=== PATIENT | female | born 1980 | race American Indian/Alaskan Native ===

== ENCOUNTER 2018-12-15 15:13 | Emergency (ER) | payer SELFPAY ==
--- NOTE | 2018-12-15 15:33 | Event Note ---
ED Screening Note ED Screening Note: pt presents for SPEARS that began yesterday states she has SOB and left sided CP states it feels a dull ache no N/V states her BP is elevated, takes amlodipine and hydrochlorothiazide, took them both today denies any other PMHx states she has had these sx before when her pressure was high LNMP december 01 +smoker +occ drinker no drug use This initial assessment/diagnostic orders/clinical plan/treatment(s) is/are subject to change based on patients health status, clinical progression and re- assessment by fellow clinical providers in the ED. Further treatment and workup at subsequent clinical providers discretion. Patient/guardian urged not to elope from the ED as their condition may be serious if not clinically assessed and managed. Initial orders include: CP protocol
[2018-12-15 15:56] LABS: Basophils # (Auto) 0.1 K/mm3 (0.0-0.1); Basophils % (Auto) 0.9 % (0.0-1.8); Eosinophils % (Auto) 0.5 % (0.0-4.3); Hematocrit 39.3 % (30.3-42.9); Hemoglobin 13.4 gm/dl (10.1-14.3); Lymphocytes # (Auto) 1.8 K/mm3 (1.2-5.4); Lymphocytes % (Auto) 29.4 % (13.4-35.0); Mean Corpuscular HGB Conc 34 % (30-34); Mean Corpuscular Volume 86 fl (79-97); Monocytes # (Auto) 0.4 K/mm3 (0.0-0.8); Platelet Count 358 K/mm3 (140-440); Red Blood Count 4.55 M/mm3 (3.65-5.03); Red Cell Distribution Width 17.6 % (13.2-15.2)
[2018-12-15 16:06] LABS: INR 0.97 (0.87-1.13)
--- NOTE | 2018-12-15 16:06 | XRay Report ---
PROCEDURE: XR CHEST ROUTINE 2V TECHNIQUE: PA and lateral chest radiographs were obtained. HISTORY: Chest Pain COMPARISONS: None. FINDINGS: There is no evidence of infiltrate, pneumothorax or pleural fluid collection. The cardiomediastinal silhouette is normal in appearance. The bony structures are unremarkable. IMPRESSION: 1. No evidence of an acute pulmonary process. This document is electronically signed by Poornima Arnold MD., December 15 2018 04:04:20 PM ET
[2018-12-15 16:07] LABS: Partial Thromboplastin Time 27.5 Sec. (24.2-36.6)
[2018-12-15 16:27] LABS: BUN/Creatinine Ratio 9; Blood Urea Nitrogen 6 mg/dL (7-17); Calcium 10.1 mg/dL (8.4-10.2); Hemolysis Index 6
[2018-12-15] MEDS ORDERED: NORCO 5/325 PO ONE (17:09)
[2018-12-15] MEDS ORDERED: APRESOLINE IV ONE (17:51)
[2018-12-15] MEDS ORDERED: ZOFRAN IV ONE (18:38)
[2018-12-15] MEDS ORDERED: ZOFRAN ONE (18:39)
[2018-12-15] MEDS ORDERED: NORMODYNE IV ONE ×2 (18:42→19:29)
--- NOTE | 2018-12-15 18:50 | Cat Scan Report ---
PROCEDURE: CT HEAD/BRAIN WO CON TECHNIQUE: Computerized tomography of the head was performed without contrast material. CT DOSE LENGTH PRODUCT: 805.4 mGycm HISTORY: headache COMPARISONS: None . FINDINGS: There is no evidence of an acute intracranial process, intracranial hemorrhage or mass effect. The ventricles are normal size. The visualized portions of the orbits, paranasal and mastoid sinuses are unremarkable. The bony structures are unremarkable. IMPRESSION: 1. No evidence of an acute intracranial process, intracranial hemorrhage or mass effect. If the patient remains symptomatic and if further imaging is required, MRI may be helpful. This document is electronically signed by Poornima Arnold MD., December 15 2018 06:48:11 PM ET
[2018-12-15] MEDS ORDERED: TORADOL IV ONE (19:04)
--- NOTE | 2018-12-15 19:55 | Emergency Department Report ---
ED Chest Pain HPI - General Chief Complaint: Headache Stated Complaint: HBP/ READING 220/110 Time Seen by Provider: 12/15/18 15:29 Source: patient Mode of arrival: Ambulatory Limitations: No Limitations - History of Present Illness Initial Comments: 38-year-old -[place] female presents to the emergency department with a two-day history of a headache and some intermittent "light" chest pain, with uncontrolled blood pressure. The patient has a history of hypertension for which she is usually on hydrochlorothiazide and amlodipine but she has been out of the HCTZ for the past month. She is a tobacco smoker but denies any illicit drug use. Despite the headache, which is generalized, she denies any vision change, slurred speech, or any other neurological deficits. She does not have a title insurance examiner but her Primary care physician is Dr. Godwin Escobedo. No recent travel or sick contacts at home. She has not taken anything for her symptoms p rior to arrival. Severity scale (0 -10): 10 - Related Data Previous Rx's Medication Instructions Recorded Last Taken Type amLODIPine [Norvasc] 10 mg PO DAILY #30 tab 12/15/18 Unknown Rx hydroCHLOROthiazide [HCTZ] 25 mg PO QDAY #30 tablet 12/15/18 Unknown Rx Allergies Allergy/AdvReac Type Severity Reaction Status Date / Time No Known Allergies Allergy Unverified 12/15/18 15:18 Heart Score - HEART Score History: Slightly suspicious EKG: Non-specific Age: < 45 Risk factors: 1-2 risk factors Troponin: < normal limit HEART Score: 2 - Critical Actions Critical Actions: 0-3 pts:0.9-1.7%risk of adverse cardiac event.Candidate for discharge ED Review of Systems ROS: Stated complaint: HBP/ READING 220/110 Other details as noted in HPI Constitutional: denies: chills, fever Eyes: denies: eye pain, vision change ENT: denies: ear pain, throat pain Respiratory: denies: cough, wheezing Cardiovascular: chest pain. denies: edema Gastrointestinal: denies: abdominal pain, vomiting Genitourinary: denies: dysuria, frequency Musculoskeletal: denies: back pain, arthralgia Skin: denies: rash, lesions Neurological: headache. denies: weakness, numbness, paresthesias, confusion ED Past Medical Hx - Past Medical History Previous Medical History?: Yes Hx Hypertension: Yes - Surgical History Past Surgical History?: Yes Additional Surgical History: Tubal ligation - Social History Smoking Status: Current Every Day Smoker Substance Use Type: None - Medications Home Medications: Home Medications Medication Instructions Recorded Confirmed Last Taken Type amLODIPine [Norvasc] 10 mg PO DAILY #30 tab 12/15/18 Unknown Rx hydroCHLOROthiazide [HCTZ] 25 mg PO QDAY #30 tablet 12/15/18 Unknown Rx ED Physical Exam - General Limitations: No Limitations - Other Other exam information: GENERAL: The patient is well-developed well-nourished. HENT: Normocephalic. Atraumatic. Patient has moist mucous membranes. EYES: Extraocular motions are intact. Pupils equal reactive to light bilaterally. No nystagmus. NECK: Supple. Trachea is midline. CHEST/LUNGS: Clear to auscultation. There is no respiratory distress noted. HEART/CARDIOVASCULAR: Regular. There is mild tachycardia. There is no murmur. ABDOMEN: Abdomen is soft, nontender. Patient has normal bowel sounds. There is no abdominal distention. SKIN: Skin is warm and dry. NEURO: The patient is awake, alert, and oriented. The patient is cooperative. The patient has no focal neurologic deficits. The patient has normal speech. Cranial nerves II through XII grossly intact. MUSCULOSKELETAL: There is no tenderness or deformity. There is no limitation range of motion. There is no evidence of acute injury. ED Course Vital Signs 12/15/18 12/15/18 12/15/18 15:31 16:01 16:03 Temperature 98.1 F Pulse Rate 123 H 84 Respiratory 16 18 Rate Blood Pressure 148/82 Blood Pressure 210/101 144/69 [Left] O2 Sat by Pulse 98 99 100 Oximetry 12/15/18 12/15/18 12/15/18 16:16 16:30 16:37 Temperature Pulse Rate 73 76 Respiratory 20 19 17 Rate Blood Pressure 148/82 145/77 Blood Pressure [Left] O2 Sat by Pulse 98 98 Oximetry 12/15/18 12/15/18 12/15/18 16:46 17:00 17:15 Temperature Pulse Rate 72 65 65 Respiratory 12 28 H 25 H Rate Blood Pressure 199/93 207/102 Blood Pressure [Left] O2 Sat by Pulse 94 95 100 Oximetry 12/15/18 12/15/18 12/15/18 17:30 17:53 17:58 Temperature Pulse Rate 68 105 H 85 Respiratory 19 19 Rate Blood Pressure 207/102 197/112 199/70 Blood Pressure [Left] O2 Sat by Pulse 100 93 Oximetry 12/15/18 12/15/18 12/15/18 18:00 18:36 18:41 Temperature Pulse Rate 89 103 H 85 Respiratory 22 21 Rate Blood Pressure 200/107 200/107 Blood Pressure 183/99 [Left] O2 Sat by Pulse 92 100 Oximetry 12/15/18 12/15/18 12/15/18 18:45 19:00 19:15 Temperature Pulse Rate 77 114 H 86 Respiratory 26 H 20 27 H Rate Blood Pressure 165/87 153/91 184/88 Blood Pressure [Left] O2 Sat by Pulse 100 Oximetry 12/15/18 20:15 Temperature Pulse Rate 85 Respiratory 18 Rate Blood Pressure Blood Pressure 174/102 [Left] O2 Sat by Pulse 100 Oximetry DIONTE score - Dionte Score Age > 65: (0) No Aspirin use within the Past 7 Days: (0) No 3 or more CAD Risk Factors: (0) No 2 or more Angina events in past 24 hrs: (1) Yes Known CAD with more than 50% Stenosis: (0) No Elevated Cardiac Markers: (0) No ST Deviation Greater than 0.5mm: (0) No DIONTE Score: 1 ED Medical Decision Making - Lab Data Result diagrams: 12/15/18 15:39 12/15/18 15:39 - EKG Data -: EKG Interpreted by Me EKG shows normal: sinus rhythm, axis, intervals, QRS complexes (Q waves to the septal leads), ST-T waves Rate: normal - EKG Data When compared to previous EKG there are: no significant change Interpretation: unchanged when compared t (02/15/09) - Radiology Data Radiology results: report reviewed, image reviewed interpreted by me: Chest x-ray does not show any acute process. There are no pleural effusions, obvious pneumonia and there is no pneumothorax. PROCEDURE: CT HEAD/BRAIN WO CON TECHNIQUE: Computerized tomography of the head was performed without contrast m aterial. CT DOSE LENGTH PRODUCT: 805.4 mGycm HISTORY: headache COMPARISONS: None . FINDINGS: There is no evidence of an acute intracranial process, intracranial hemorrhage or mass effect. The ventricles are normal size. The visualized portions of the orbits, paranasal and mastoid sinuses are unremarkable. The bony structures are unremarkable. IMPRESSION: 1. No evidence of an acute intracranial process, intracranial hemorrhage or mass effect. If the patient remains symptomatic and if further imaging is required, MRI may be helpful. This document is electronically signed by Poornima Arnold MD., December 15 2018 06:48:11 PM ET Transcribed By: ED Dictated By: POORNIMA ARNOLD MD Electronically Authenticated By: POORNIMA ARNOLD MD Signed Date/Time: 12/15/18 8620 - Medical Decision Making This patient presents with a complaint of uncontrolled blood pressure, headache and some chest pain. On examination there is no focal, motor or sensory deficits in her cranial nerves are intact. The patient has been compliant with only one half of her blood pressure medications as she has been without the HCTZ for about one month. She was given a dose of hydralazine and a dose of labetalol and her blood pressure came down to a more reasonable level. The patient is a tobacco smoker and also says that she drinks a lot of caffeinated p roducts so she has some room for dietary and lifestyle changes to be made. She had a CT scan of the head without contrast that did not show any bleed, shift, mass, ischemia, or any other acute process. Chest x-ray did not show any pneumonia, pleural effusions, pneumothorax, focal consolidation, or any other acute process. Her labs were mostly unremarkable including negative troponins 2 and a negative d-dimer. She was given a [place] and Toradol for her discomfort with great improvement. Prior to discharge, the patient has no chest pain and her headache is down to about a 1 out of 10. She was seen ambulatory in the emergency department and appears and feels stable. The patient will be r estarted on her hydrochlorothiazide. She will keep a blood pressure log with these new dietary and lifestyle changes. She will follow up with primary care and will return to the ER with any worsening of her symptoms or any acute distress. - Differential Diagnosis tension headache, migraines, costochondritis, CA, GERD Critical Care Time: No Critical care attestation.: If time is entered above; I have spent that time in minutes in the direct care of this critically ill patient, excluding procedure time. ED Disposition Clinical Impression: Intermittent chest pain Hypertension Qualifiers: Hypertension type: essential hypertension Qualified Code(s): I10 - Essential (primary) hypertension Headache Qualifiers: Headache type: unspecified Headache chronicity pattern: unspecified pattern Intractability: not intractable Qualified Code(s): R51 - Headache Disposition: DC-01 TO HOME OR SELFCARE Is pt being admited?: No Condition: Stable Instructions: Chest Pain (ED), Hypertension (ED) Additional Instructions: Please follow-up with your primary care physician in the next few days. Return to the emergency department with any worsening of your symptoms, return of your chest pain, inability to control your blood pressure, or any acute distress. Please try and quit smoking. Stay away from food and drinks that are high in salt and caffeinated products. Keep a blood pressure log. Prescriptions: hydroCHLOROthiazide [HCTZ] 25 mg PO QDAY #30 tablet amLODIPine [Norvasc] 10 mg PO DAILY #30 tab Referrals: GODWIN JAMES MD [Staff Physician] - 3-5 Days ALLISON RAMOS MD [Staff Physician] - 3-5 Days Forms: Work/School Release Form(ED) Time of Disposition: 20:14
[2018-12-15 20:21] VITALS: BP 174/102
== END 2018-12-15 20:33 | disposition home or self-care (01) ==
LOC: ED 15:13
DX: R51 Headache (principal); R07.89 Other chest pain; I10 Essential (primary) hypertension
CPT/HCPCS: 36415; 70450; 71046; 80048; 84484; 85025; 85379; 85610; 85730; 93005; 93010; 96374; 96375; 99285; J0360; J1885; J2405

== ENCOUNTER 2020-06-22 10:07 | Emergency (ER) | payer SELFPAY ==
[2020-06-22 10:46] VITALS: BP 159/85
--- NOTE | 2020-06-22 11:11 | Emergency Department Report ---
Chief Complaint: Extremity Injury, Upper Stated Complaint: LT WRIST POSSIBLE DISLOCATION - HPI History of Present Illness: 40-year-old -[place] Citizen female presents to the emergency room for left wrist injury. Patient states that she was lifting a heavy object when she felt something in her left wrist pop. Patient denies any swelling. Patient states that she has been placing ice on. Patient has not taken anything for pain. She denies any falls or blunt force. 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 - Exam Vital Signs: Vital Signs 06/22/20 10:42 Temperature 97.7 F Pulse Rate 80 Respiratory 20 Rate Blood Pressure 159/85 O2 Sat by Pulse 99 Oximetry Physical Exam: Alert and oriented x3 no acute distress nontoxic in appearance Left wrist full range of motion, able to make a fist, full extension of all fingers and able to flex. No swelling appreciated able to supinate and pronate Ambulatory without difficulties. MSE screening note: Focused history and physical exam performed. Due to findings the following was ordered: 40-year-old -[place] Citizen female presents to the emergency room for left wrist injury. Patient states that she was lifting a heavy object when she felt something in her left wrist pop. Patient denies any swelling. Patient states that she has been placing ice on. Patient has not taken anything for pain. She denies any falls or blunt force. 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 Discussed with patient she can try taking ibuprofen or Tylenol. She can use a wrist brace to help give her support. ED Disposition for MSE Disposition: Z-07 MED SCREENING EXAM-LEFT Is pt being admited?: No Does the pt Need Aspirin: No Condition: Stable Instructions: Wrist Sprain, Adult Additional Instructions: Recommend ibuprofen Tylenol. Ibuprofen every 6-8 hours Tylenol every 4-[address] it in a wrist splint that she can purchase from [employer] or [employer]. Take your medications before you start exercising your wrist. Be sure to eat and drink with taking medications as this can irritate your stomach. If your symptoms persist or gets worse and please follow-up with an orthopedic provider I have listed 1 below for your convenience Referrals: [facility] [Provider Group] - 3-5 Days STEPHANIE ELY MD [Staff Physician] - 3-5 Days Forms: Work/School Release Form(ED)
== END 2020-06-22 11:10 | disposition home or self-care (01) ==
LOC: ED 10:07
DX: Z00.8 Encounter for other general examination (principal); Z53.21 Procedure and treatment not carried out due to patient leaving prior to being seen by health care provider